=== PATIENT | male | born 1950 | race Caucasian/White ===

== ENCOUNTER 2017-07-05 08:13 | Inpatient (IN) | payer OTHER ==
[2017-06-12 09:07] VITALS: BMI 38.0
--- NOTE | 2017-06-12 09:39 | PAT Medication Instructions ---
Service Date Jun 12, 2017. Current Home Medication List Glucosamine-Chondroitin (Glucosamine/Chondroitin), 1 CAP PO BID Multivitamin (Multivitamin), 1 TAB PO BID Primidone (Mysoline), 100 MG PO BID Ranitidine (Zantac), 300 MG PO BID Tamsulosin HCl (Tamsulosin HCl), 1 CAP PO QAM Testosterone Cypionate (Testosterone Cypionate), 1 DOSE INJ Q4WK Medication Instructions For Your Scheduled Surgery Testosterone Cypionate (Testosterone Cypionate), 1 DOSE INJ Q4WK (continue as directed) - Hold the following medications 2 weeks prior to surgery: Glucosamine-Chondroitin (Glucosamine/Chondroitin), 1 CAP PO BID - Hold the following medications the morning of surgery: Multivitamin (Multivitamin), 1 TAB PO BID Ranitidine (Zantac), 300 MG PO BID Tamsulosin HCl (Tamsulosin HCl), 1 CAP PO QAM - Take the following medications the morning of surgery with a sip of water: Primidone (Mysoline), 100 MG PO BID - Take the following medications as scheduled the night before surgery: Ranitidine (Zantac), 300 MG PO BID Primidone (Mysoline), 100 MG PO BID If you have any questions please call us at [phone] or [phone] or [phone]
--- NOTE | 2017-06-12 10:20 | DIAGNOSTIC IMAGING REPORT ---
CHEST PREADMISSION(PA/LAT) CLINICAL HISTORY: PAT preoperative evaluation COMPARISON STUDY: 01/17/2011 FINDINGS: The bones soft tissues and hemidiaphragms are normal. The cardiomediastinal silhouette is normal. The lungs are clear. The pulmonary vasculature is normal. IMPRESSION: Negative chest. The above report was generated using voice recognition software. It may contain grammatical, syntax or spelling errors. Electronically signed by: Jeremie Bruce M.D. 06/12/2017 10:18 AM Dictated Date/Time: 06/12/2017 10:18 AM
[2017-06-12 10:39] LABS: BASO % 0.5 %; BASO ABS # 0.03 K/uL (0-0.2); COMPLETE YES; EOS % 1.3 %; HEMATOCRIT 48.6 % (42-52); IG% 0.2 %; LYMPH % 33.6 %; LYMPH ABS # 2.01 K/uL (1.2-3.4); MEAN CORPUSCULAR HEMOGLOBIN 33.6 pg (25-34); MEAN PLATELET VOLUME 11.4 fL (7.4-10.4); MONO % 7.9 %; NEUT % 56.5 %; PLATELET COUNT 114 K/uL (130-400); RED BLOOD COUNT 4.91 M/uL (4.7-6.1); WHITE BLOOD COUNT 5.98 K/uL (4.8-10.8)
[2017-06-12 10:47] LABS: INR 0.9 (0.9-1.1); PARTIAL THROMBOPLASTIN RATIO 1.1
[2017-06-12 10:50] LABS: BUN/CREATININE RATIO 18.1 (10-20); CALCIUM 9.3 mg/dl (8.5-10.1); CREATININE 1.1 mg/dl (0.60-1.40); POTASSIUM 4.5 mmol/L (3.5-5.1)
--- NOTE | 2017-06-30 14:13 | HISTORY & PHYSICAL EXAMINATION ---
DATE OF ADMISSION: 07/05/2017 CHIEF COMPLAINT: Left knee pain and discomfort. HISTORY OF PRESENT ILLNESS: This is a 66-year-old gentleman who presents for surgical treatment of his left knee. He has got a long history of left knee pain and discomfort and had 3 previous surgeries on his left knee. These were done by Dr. Mehta and some were done in [place]. Over the past several years, he has developed increased pain and discomfort in his knee. He has had recent injections, which helped him for just a couple weeks at best. His pain has become more debilitating. It is a global pain, increased with weightbearing. He would like to have his knee fixed. PAST MEDICAL HISTORY: Significant for, 1. Back pain. 2. Gastroesophageal reflux disease. 3. History of smoking. 4. Obesity with a BMI 39. PAST SURGICAL HISTORY: Include, 1. Left knee surgery x3. 2. Right knee surgery x1. 3. Cholecystectomy. ALLERGIES: PENICILLIN, WHICH APPARENTLY CAUSES ANAPHYLAXIS. CURRENT MEDICINES: Include, 1. Primidone 250 mg twice a day for shakes. 2. Ranitidine twice a day. 3. Tamsulosin for prostate once a day. 4. Testosterone 50 mg every 4 weeks for Klinefelter syndrome. SOCIAL HISTORY: A 67-year-old male. He is . Half a pack of cigarettes a day. FAMILY HISTORY: Noncontributory. REVIEW OF SYSTEMS: Negative for diabetes, neurologic problems, vascular problems, or bleeding disorders. Denies any chest pain. No shortness of breath. No history of DVT or PE. PHYSICAL EXAMINATION: GENERAL: Physical examination reveals a healthy, pleasant, middle-aged male. He looks to be in pretty good health. HEENT: Benign. NECK: Supple. No lymphadenopathy. LUNGS: Clear to auscultation. HEART: Regular rate and rhythm. ABDOMEN: Soft, nontender, and nondistended. EXTREMITIES: Grossly neurovascularly intact except as follows. Examination of left knee reveals that the patient ambulates independently. He has got a well-healed incision on the front medial side of his knee. He has got slight varus deformity. He has got small to moderate sized knee effusion. He is tender over the medial joint line. Range of motion is 5-125. No clinical instability. X-RAYS: X-rays of the left knee were reviewed. It shows advanced left knee medial compartment DJD. He has got complete loss of his medial joint space. He got osteophytes of the mediofemoral condyle and medial tibial plateau. ASSESSMENT: A 67-year-old male with a history of 3 previous knee surgeries with advanced degenerative joint disease. He has failed conservative treatment and would like to have his left knee replaced. PLAN: We are going to take him to the operating room and do a left total knee replacement. The risks and benefits of this procedure were explained to the patient, including but not limited to DVT, PE, , infection, neurological injury, vascular injury, bleeding problem, pain, limited range of motion, stiffness, failure to relieve his symptoms, incomplete relief of symptoms, need for further surgery in the future, fracture, leg length inequality, nerve palsy, dislocation, persistent pain, etc. The patient understands and desires to proceed. Informed consent was obtained. We will likely give him vancomycin due to his ACUTE PENICILLIN ALLERGY. He does have a smoking history and will likely need to use a nicotine patch. He is hoping to just go to outpatient therapy at [facility] postoperatively once discharged from the hospital. ABIMBOLA
[2017-07-05] VITALS (10 sets, daily range): BP systolic 111–178; BP diastolic 79–125; PULSE 60–83; TEMP 36.2–36.8; O2SAT 94–100; Ht 185.4 cm; Wt 131.7 kg
[~2017-07-05] VITALS: Ht 185.4 cm; Wt 131.7 kg
[~2017-07-05 08:13] MED LIST: ACETAMINOPHEN 500 MG TAB PO SCH; BUPIVACAINE LIPOSOME 266 MG, BUPIVACAINE/EPINEPHRINE INJ 50 ML, SODIUM CHLORIDE 0.9% PF... INFIL SCH; CLONIDINE HCL 0.1 MG/24 HR TRANSDERM SYS TD SCH; FAMOTIDINE 20 MG TAB PO SCH; FLM4 PO; GABAPENTIN 300 MG CAP PO SCH; GLUC250C PO; LACTATED RINGER'S 1000ML 1,000 ML IV SCH; LACTATED RINGER'S 1000ML 500 ML IV ONE; LACTATED RINGER'S 1000ML IV SCH; METOCLOPRAMIDE HCL 10 MG TAB PO SCH; MULT-506 PO; PRIM50TA29 PO; TEST1INJ2 INJ; TRANEXAMIC ACID INJ 1,000 MG in SODIUM CHLORIDE 0.9% 100ML 100 ML IV SCH; VANCOMYCIN INJ 2,000 MG in SODIUM CHLORIDE 0.9% 500ML 500 ML IV SCH; ZNTT/150 PO
[2017-07-05] MEDS ORDERED: BUPIVACAINE 0.25% 30 ML VIAL ONE (08:18)
[2017-07-05] MEDS ORDERED: BUPIVACAINE 0.5 % 5 MG/1 ML PF 10ML VIAL ONE (08:18)
--- NOTE | 2017-07-05 08:47 | History & Physical Bridge Note ---
H&P Re-Evaluation Bridge Note: I have examined the patient, reviewed the History & Physical and in the interval since the performance of the History & Physical I have noted the following changes of clinical significance: No changes noted
[2017-07-05] MEDS ORDERED: MIDAZOLAM HCL 1 MG/ML 2ML VIAL ONE (10:22)
[2017-07-05] MEDS ORDERED: FENTANYL CITRATE INJ 50 MCG/1 ML 2 ML VIAL ONE ×2 (10:22→12:57)
[2017-07-05] MEDS ORDERED: BUPIVACAINE/EPINEPHRINE 0.25% 1:200,000 30 ML VIAL ONE (11:29)
[2017-07-05] MEDS ORDERED: SODIUM CHLORIDE 0.9% PF 50 ML VIAL ONE (11:29)
[2017-07-05] MEDS ORDERED: VANCOMYCIN HCL 1000MG/20ML VIAL ONE (11:30)
[2017-07-05] MEDS ORDERED: BUPIVACAINE LIPOSOME 1/3% 266 MG/20 ML VIAL INFIL ONE (11:30)
[2017-07-05] MEDS ORDERED: BACITRACIN 50000 UNIT VIAL ONE (11:30)
[2017-07-05] MEDS ORDERED: EpHEDrine SULFATE INJ 50 MG/ML AMP IV PRN (11:45)
[2017-07-05] MEDS ORDERED: PHENYLEPHRINE 100MCG/ML 5ML SYR IV PRN (11:45)
[2017-07-05] MEDS ORDERED: KETOROLAC TROMETHAMINE 15 MG/ML VIAL IV. PRN (11:45)
[2017-07-05] MEDS ORDERED: ATROPINE SULFATE 0.1 MG/ML 5ML SYR IV PRN (11:45)
[2017-07-05] MEDS ORDERED: ONDANSETRON INJ 2 MG/ML 2 ML VIAL IV PRN ×2 (11:45→13:30)
[2017-07-05] MEDS ORDERED: HYDROmorphone INJ 2 MG/ML SYR/VIAL IV PRN (11:45)
[2017-07-05] MEDS ORDERED: AMINOPHYLLINE 25 MG/ML 20ML VIAL IV ONE (12:40)
[2017-07-05] MEDS ORDERED: LIDOCAINE HCL 2% 2 ML VIAL (20MG/ML) ONE (12:40)
--- NOTE | 2017-07-05 13:28 | [facility] Post Operative Brief Note ---
Immediate Operative Summary Operative Date Jul 05, 2017. Pre-Operative Diagnosis Left knee advanced degenerative joint disease Post-Operative Diagnosis Left knee advanced degenerative joint disease Procedure(s) Performed Left Total Knee Arthroplasty Surgeon Dr. Jd Moss Yarn Weight And Strength Tester Surgeon(s) Silva Holman PA-C Estimated Blood Loss 50 ML Findings Left Knee DJD Fluids (cc crystalloids) 1500 cc Specimens Specimen A. Left knee bone and tissue Drains None Anesthesia Spinal Complication(s) None Disposition Recovery Room / PACU
[2017-07-05] MEDS ORDERED: BISACODYL 10 MG SUPP PR PRN (13:30)
[2017-07-05] MEDS ORDERED: ZOLPIDEM TARTRATE 5 MG TAB PO PRN (13:30)
[2017-07-05] MEDS ORDERED: DiphenhydrAMINE HCL 50 MG/ML VIAL IV PRN (13:30)
[2017-07-05] MEDS ORDERED: METOCLOPRAMIDE HCL INJ 5 MG/ML 2 ML VIAL IV PRN (13:30)
[2017-07-05] MEDS ORDERED: SILVER SULFADIAZINE 1% CR 50 GM JAR EXT PRN (13:30)
[2017-07-05] MEDS ORDERED: MAGNESIUM HYDROXIDE SUSP 30 ML UDC PO PRN (13:30)
[2017-07-05] MEDS ORDERED: ALUMINUM/MAGNESIUM/SIMETH (MAALOX MAX) 30 ML UDC PO PRN (13:30)
[2017-07-05] MEDS ORDERED: TAMSULOSIN HCL 0.4 MG CAP PO PRN (13:30)
--- NOTE | 2017-07-05 14:01 | DIAGNOSTIC IMAGING REPORT ---
LEFT KNEE 1 OR 2 VIEWS ROUTINE HISTORY: 67 years-old Male AP/LATERAL IN PACU LEFT KNEE. Status post arthroplasty COMPARISON: Knee radiographs 02/14/2017 TECHNIQUE: Frontal and lateral views of the left knee FINDINGS: There is been recent left total knee arthroplasty with patellar resurfacing. Alignment is satisfactory without periprosthetic fracture. Skin yareli are noted with drain and expected postsurgical swelling and deep tissue air. IMPRESSION: Status post left knee total joint arthroplasty and patellar resurfacing without complication. The above report was generated using voice recognition software. It may contain grammatical, syntax or spelling errors. Electronically signed by: Tulio Polanco M.D. 07/05/2017 2:00 PM Dictated Date/Time: 07/05/2017 1:59 PM
--- NOTE | 2017-07-05 14:21 | Anesthesiology Progress Note ---
Anesthesia Post Op Note Date & Time Jul 05, 2017 at 14:20 Vital Signs Pain Intensity: 0 Vital Signs Past 12 Hours Date Time Temp Pulse Resp B/P (MAP) Pulse Ox O2 Delivery O2 Flow Rate FiO2 07/05/17 14:15 36.2 48 14 131/80 99 Nasal Cannula 2 07/05/17 14:05 50 15 118/78 99 Nasal Cannula 2 07/05/17 13:55 52 14 119/81 99 Oxymask 10 07/05/17 13:45 64 16 110/76 100 Oxymask 10 07/05/17 13:35 36.2 60 20 129/68 96 Oxymask 10 07/05/17 08:39 36.5 69 18 139/93 95 Room Air Notes Mental Status: alert / awake / arousable, participated in evaluation Pt Amnestic to Procedure: Yes Nausea / Vomiting: adequately controlled Pain: adequately controlled Airway Patency, RR, SpO2: stable & adequate BP & HR: stable & adequate Hydration State: stable & adequate Anesthetic Complications: no major complications apparent
[2017-07-05] MEDS: D5W AND 1/2NSS + 20MEQ KCL 1,000 ML IV SCH ×2 (15:46→21:10)
[2017-07-05] MEDS: CHECK CLONIDINE PATCH PLACEMENT SCH ×2 (16:00→23:20)
[2017-07-05] MEDS ORDERED: PNEUMOCOCCAL ADMINISTRATION CHARGE ONE (16:45)
[2017-07-05] MEDS ORDERED: PNEUMOCOCCAL POLYSACCHARIDES 25 MCG/0.5 ML VIAL/SYR IM. ONE (16:45)
--- NOTE | 2017-07-05 17:52 | PROGRESS NOTE ---
DATE: 07/05/2017 SUBJECTIVE: A 67-year-old gentleman postop from a left knee replacement. He is doing well. He does not have much feeling in his leg yet. No pain. No chest pain or shortness of breath. Not feeling dizzy or lightheaded. OBJECTIVE: VITAL SIGNS: Temperature 36.2. Vital signs stable. GENERAL: Reveals a pleasant, middle-aged male. I had to wake him this afternoon when I went in his rhythm. LUNGS: Clear to auscultation. HEART: Regular rate and rhythm. ABDOMEN: Soft, nontender, nondistended. EXTREMITIES: Grossly neurovascularly intact except as follows: Examination of the left lower extremity reveals the dressing to be clean, dry and intact. Leg is well aligned. He can dorsiflex and plantarflex his toes and just starting to get the motor function back. No significant sensory function yet. He has got brisk refill with good distal pulses. X-RAYS: X-rays of the left knee from recovery room reviewed. It shows a left cemented stabilized total knee arthroplasty. Components looked to be in good position. No signs of problems. ASSESSMENT: A 67-year-old gentleman postop from a left knee replacement, doing well. Spinal has just wearing off. His motor function is intact. Sensory function has not really returned yet. His pain is controlled. PLAN: 1. DVT prophylaxis including thigh-high TEDs, SCDs, and aspirin twice a day. 2. PT/OT. Weightbearing as tolerated. Left total knee protocol. 3. Pain control, doing well with current pain regimen. 4. IV antibiotics x24 hours. 5. Disposition: Plan to discharge to home with some home health once adequately recovered.
[2017-07-05] MEDS: FERROUS GLUCONATE 324 MG TAB PO SCH (18:00)
[2017-07-05] MEDS: KETOROLAC TROMETHAMINE 15 MG/ML VIAL IV. SCH ×2 (18:01→23:23)
[2017-07-05] MEDS: OXYCODONE HCL IR 5 MG TAB (IMMEDIATE RELEASE) PO PRN ×2 (19:02→19:44)
[2017-07-05] MEDS: MoRPHine SULFATE 2 MG/ML CARP IV PRN ×3 (19:45→22:02)
[2017-07-05] MEDS ORDERED: VANCOMYCIN INJ 2,000 MG in SODIUM CHLORIDE 0.9% 500ML 500 ML IV SCH (20:00)
[2017-07-05] MEDS ORDERED: TRANEXAMIC ACID INJ 1,000 MG in SODIUM CHLORIDE 0.9% 100ML 100 ML IV SCH (20:00)
[2017-07-05] MEDS: DOCUSATE SODIUM 100 MG CAP PO SCH (20:30)
[2017-07-05] MEDS: TAPENTADOL ER 50 MG TABCR PO SCH (20:30)
[2017-07-05] MEDS: ASPIRIN 325 MG ECTAB PO SCH (20:30)
[2017-07-05] MEDS: MULTIVITAMIN TAB PO SCH (20:31)
[2017-07-05] MEDS: PRIMIDONE 50 MG TAB PO SCH (20:31)
[2017-07-05] MEDS: RANITIDINE HCL 150 MG TAB PO SCH (20:32)
[2017-07-05] MEDS: SENNA 8.6 MG TAB PO SCH (20:32)
[2017-07-05] MEDS: ACETAMINOPHEN 500 MG TAB PO SCH (20:33)
--- NOTE | 2017-07-05 22:17 | OPERATIVE REPORT ---
DATE OF OPERATION: 07/05/2017 SURGEON: Dr. Jd Moss. ALARM OPERATOR: MARCIA Andrade PREOPERATIVE DIAGNOSIS: Left knee degenerative joint disease. POSTOPERATIVE DIAGNOSIS: Same. PROCEDURE PERFORMED: Left cemented posterior stabilized total knee arthroplasty. COMPLICATIONS: None. ESTIMATED BLOOD LOSS: 50 mL. FLUID REPLACEMENT: 1500 mL crystalloid fluid replacement. ANESTHESIA: Spinal with adductor canal block. DRAINS: None. SPECIMENS: Left knee sent for pathology. TOURNIQUET TIME: 55 minutes at 350 mmHg. OPERATIVE INDICATIONS: The patient is a 67-year-old gentleman who has a history of 3 previous knee surgeries of his left knee. He has had a long history of knee pain. He has been through extensive conservative treatment and this became less successful with time. X-rays show advanced DJD. The patient elected to proceed with operative treatment. OPERATIVE FINDINGS: Operative findings revealed advanced left knee DJD. Grade 4 bone on bone disease in all 3 compartments, most severe in the medial side. Eburnation of medial femoral condyle and medial tibial plateau. Large osteophytes off medial femoral condyle and medial tibial plateau. He had a large ganglion/a Haider cyst in the posteromedial side of his knee. OPERATIVE IMPLANTS: Operative implants consisted of: 1. Biomet Vanguard size 70 left posterior stabilized femoral component. 2. Biomet size 79 tibial tray. 3. A 12 mm posterior stabilized polyethylene insert. 4. A 37 x 10 all poly patella. OPERATIVE PROCEDURE: The patient taken to the operating room, identified and placed on the operating table in supine position. All contact areas were appropriately padded. IV antibiotics were provided by the anesthesia team. A spinal anesthetic and adductor canal block had been provided in the holding area. Drake catheter was placed in sterile fashion. A left thigh tourniquet was then placed and left lower extremity was then prepped and draped in the usual sterile fashion. The left leg was elevated and exsanguinated with an Esmarch and tourniquet was placed at 350 mmHg. An anterior approach to the left knee was then performed through a longitudinal incision centered over the patella. Sharp dissection was carried out through the subcutaneous tissues down to the level of the extensor mechanism. A medial parapatellar arthrotomy incision was made. Some subperiosteal dissection was carried out medially. Upon doing this, we entered the large ganglion fluid-filled cyst in the posteromedial side of his tibia. This was evacuated. The fat pad was resected. The patellofemoral ligament was released. The patella was everted and knee was flexed. The osteophytes were taken off the distal femur. The ACL and PCL were then released from the distal femur and the tibia subluxated anteriorly. The external tibial alignment jig was then placed in the anterior face of the tibia and adjusted 16 mm medially. Proximal tibial cut was made to remove about a millimeter of bone from the most deficient aspect of the medial tibial plateau. Some osteophytes were taken off medial and posteromedially. Tibia was sized to a size 79. Attention was then drawn to the femur. The distal femur was entered with a sharp drill bit. Intramedullary canal was suctioned. A left 6-degree valgus cutting guide was placed. Distal femoral cutting block was pinned in place. Distal femoral cut was made to take an additional 3 mm of bone off the distal femur. The femur was then sized to a size 70. This fit exactly at 70. The AP cutting block was pinned parallel to the epicondylar axis, which was 5 degrees of external rotation with the anterior cut, anterior chamfer, posterior cut, posterior chamfer cuts were made. Box cutting guide was placed and adjusted slightly lateral and the box cut was made. The knee was flexed. The remnants of the medial and lateral meniscus were excised. The osteophytes were taken off the posterior aspect of the femur. Trial femoral component was placed. Tibial tray was pinned in maximum external rotation and drill and stem punch were used to create defect in proximal tibia for the tibial tray. The knee was then trialed and a 12 mm insert fit most appropriately. Attention was then drawn to the patella. The patella was cleaned of all soft tissues. Patella thickness measured 25 mm in thickness and was cut down to 15, it was sized to a size 37 patella. Lug holes were drilled for a 37 patella. Lateral osteophyte was removed. Patella button was placed. The knee was taken through range of motion and the patella tracked nicely with no thumbs test. Attention was then drawn toward placement of permanent components. All trial components were removed. Bone plug was placed in the distal femur to limit blood loss. A double batch of Palacos G cement was mixed. A left size 70 posterior stabilized femoral component, size 79 tibial tray, a 12 mm posterior stabilized polyethylene insert, and a 37 x 10 all poly patella were then cemented in place. Knee was brought out into full extension until cement hardened. A final cement check was then performed. Pericapsular tissues were injected with a total of 100 mL of a combination of 20 mL of Exparel, 30 mL of normal saline, 50 mL of 0.25% Marcaine with epinephrine. The patient did receive 1 gram of tranexamic acid. The tourniquet was then let down for final tourniquet time of 59 minutes. Hemostasis was assured with use of electrocautery. The extensor mechanism was then closed with a combination of #1 PDS suture and #1 Vicryl suture in a [id number] fashion. Extensor mechanism was checked and found to be intact. The subcutaneous tissues were then closed with 2-0 Dexon suture in buried interrupted fashion. Skin was closed skin yareli. Leg was then cleaned and dried and a sterile dressing of Xeroform, 4 x 4, sterile cast padding and an Aaron bandage were applied. The patient was then transferred to the recovery room in stable condition. The patient tolerated the procedure well with no complications. All needle and sponge counts were correct at the end of the operation. I attest to the content of the Intraoperative Record and any orders documented therein. Any exceptions are noted below. BRINAD
[2017-07-06 03:35] VITALS: BP 103/67; PULSE 68; TEMP 36.7; O2SAT 93
[2017-07-06] MEDS: KETOROLAC TROMETHAMINE 15 MG/ML VIAL IV. SCH ×4 (05:11→23:11)
[2017-07-06] MEDS: ACETAMINOPHEN 500 MG TAB PO SCH ×3 (05:11→20:49)
[2017-07-06] MEDS: D5W AND 1/2NSS + 20MEQ KCL 1,000 ML IV SCH ×2 (05:14→11:44)
[2017-07-06] MEDS: OXYCODONE HCL IR 5 MG TAB (IMMEDIATE RELEASE) PO PRN ×2 (05:17→09:52)
[2017-07-06 06:20] LABS: HEMATOCRIT 41.4 % (42-52); MEAN CELL VOLUME 100.5 fL (80-100); MEAN CORPUSCULAR HGB CONC 32.9 g/dl (32-36); MEAN PLATELET VOLUME 11.3 fL (7.4-10.4); PLATELET COUNT 123 K/uL (130-400); RED BLOOD COUNT 4.12 M/uL (4.7-6.1); WHITE BLOOD COUNT 6.35 K/uL (4.8-10.8)
[2017-07-06 07:41] VITALS: BP 92/61; PULSE 66; TEMP 36.7; O2SAT 96
[2017-07-06 07:52] LABS: BUN/CREATININE RATIO 13.4 (10-20); CALCIUM 8.1 mg/dl (8.5-10.1); CREATININE 1.1 mg/dl (0.60-1.40); POTASSIUM 4.5 mmol/L (3.5-5.1)
[2017-07-06] MEDS: CHECK CLONIDINE PATCH PLACEMENT SCH ×3 (08:19→23:08)
[2017-07-06] MEDS: MoRPHine SULFATE 2 MG/ML CARP IV PRN (08:23)
[2017-07-06] MEDS: ASPIRIN 325 MG ECTAB PO SCH ×2 (08:24→20:48)
[2017-07-06] MEDS: TAPENTADOL ER 50 MG TABCR PO SCH ×2 (08:24→20:49)
[2017-07-06] MEDS: PRIMIDONE 50 MG TAB PO SCH ×2 (08:25→20:49)
[2017-07-06] MEDS: MULTIVITAMIN TAB PO SCH ×2 (08:25→20:48)
[2017-07-06] MEDS: DOCUSATE SODIUM 100 MG CAP PO SCH ×2 (08:25→20:47)
[2017-07-06] MEDS: TAMSULOSIN HCL 0.4 MG CAP PO SCH (08:25)
[2017-07-06] MEDS: FERROUS GLUCONATE 324 MG TAB PO SCH ×3 (08:26→18:06)
[2017-07-06] MEDS: PANTOprazole SOD 40 MG TAB PO SCH (08:26)
[2017-07-06] MEDS: RANITIDINE HCL 150 MG TAB PO SCH ×2 (08:26→20:48)
--- NOTE | 2017-07-06 08:57 | PROGRESS NOTE ---
DATE: 07/06/2017 SUBJECTIVE: A 67-year-old gentleman postop day 1 from left knee replacement. He is doing pretty well. Not much pain. No chest pain or shortness of breath. Not feeling dizzy or lightheaded. OBJECTIVE: VITAL SIGNS: Temperature 36.7. Vital signs stable. PHYSICAL EXAMINATION: Examination of the left lower extremity reveals the leg to be well aligned. Dressing is clean, dry and intact. No drainage. He can dorsiflex and plantarflex his foot appropriately. He is neurologically intact. LABORATORY DATA: Hemoglobin 13.6, hematocrit 41.4. Electrolytes are pending. ASSESSMENT: A 67-year-old gentleman postop day 1 from left knee replacement, doing pretty well. Pain seems to be controlled. He is neurologically intact. PLAN: 1. DVT prophylaxis including thigh-high TEDs, SCDs, and aspirin twice a day. 2. PT/OT. Weightbearing as tolerated. Left total knee protocol. 3. Pain control, doing well with current pain regimen. 4. Disposition. He is planning to be discharged to home with some home health once medically stable and recovered.
[2017-07-06] MEDS ORDERED: MULTIVITAMIN TAB PO SCH (09:00)
[2017-07-06 15:16] VITALS: BP 96/61; PULSE 88; TEMP 37.1; O2SAT 92
[2017-07-06 16:30] VITALS: O2SAT 92
[2017-07-06] MEDS ORDERED: ASPEC325 PO (20:06)
[2017-07-06] MEDS ORDERED: ACET-24 PO (20:06)
[2017-07-06] MEDS ORDERED: RXC5 PO (20:06)
--- NOTE | 2017-07-06 20:10 | Discharge Instructions ---
Discharge Instructions Date of Service Jul 06, 2017. Admission Reason for Admission: Left Knee Degenerative Joint Disease Discharge Discharge Diagnosis / Problem: Left Knee Replacement Discharge Goals Goal(s): Decrease discomfort, Improve function, Increase independence, Improve disease control, Therapeutic intervention Activity Recommendations Activity Limitations: per Instructions/Follow-up section Weightbearing Status: Left weightbearing . Instructions / Follow-Up Instructions / Follow-Up ACTIVITY RECOMMENDATIONS: Physical Therapy: * You will go to physical therapy three times each week for four to six weeks after your surgery in order to regain your knee range of motion and to retrain your knee to work properly. * It is just as important to make sure you are getting your knee perfectly straight as it is to regain your knee bend. * Taking a pain pill an hour before therapy can help you have a more productive and comfortable therapy session. Home Exercise: * You were shown a series of exercises (heel props, heel slides, etc.) in the hospital. Do these exercises three to four times each day including the exercises you were shown in physical therapy. Walking: * Get up and walk several times each day. For the first four weeks, try not to stand or walk for more than one hour at a time. If you do stand or walk for more than one hour, you will not hurt anything, but your knee and leg will likely swell. * As you feel comfortable, you may change from the walker or crutches to a cane and then to independent walking. MEDICATIONS: New Medicine: * You will likely be taking one or more of these medications: 1. MS Contin - A long-acting pain medication. Take 1 tablet twice a day for the first ten days to decrease your baseline level of pain. 2. Oxycodone - A quick and shorter-acting pain medication. Take one to two tablets every four to six hours to lessen your pain. 3. Aspirin - Thins your blood to lessen the chance of forming a blood clot. * The most common side effects of pain medicine and iron are nausea and constipation. If nausea or constipation is too much of a problem or if you have any questions about your new medicines or doses, call [facility] at . We will try to help you manage these issues. VERY IMPORTANT TO READ AND REVIEW" Pain: * The immediate post-operative period after knee replacement surgery is often quite painful. * You are given a prescription for pain medicine. You should take it, as directed, when you need it, especially before physical therapy and before going to bed. Pain that interferes with sleep is very common and can last several months. * You will likely need pain medicine for the first four to six weeks. It will not stop all of the pain. The pain will lessen and as you feel better, you may change to milder pain medicine such as Tylenol. * The most common side effects of pain medicine are nausea and constipation, so don't take more than you need. SPECIAL CARE INSTRUCTIONS: TEDs/Elastic Stockings: * The white elastic stockings help limit swelling and prevent blood clots from forming in your legs. The more you wear them, the more they work. * Wear them for six weeks after knee replacement surgery and four weeks after partial knee replacement. Prevention of Infection: * Take antibiotics one hour before any dental cleaning, dental work, urological procedure, gastrointestinal procedure or any invasive surgery in order to prevent your new joint from getting infected. * You may get the antibiotics from the doctor performing the procedure or you may call our office at before and we will call in a prescription to the pharmacy of your choice. Things to Watch For: * Drainage from the incision site that occurs more than one week after your surgery. * Severely increased knee/leg pain or swelling. * Increased redness at the incision site. * Fever above 102 degrees Fahrenheit. * Unusual chest pain or shortness of breath. * Unusual pain or burning with urination. Call [facility] at with any of the above problems or if you have any questions about your medicines or recovery. FOLLOW UP VISIT: Make an appointment to see your doctor for approximately two weeks after surgery for a progress check and staple removal by calling the office at . Current Hospital Diet Patient's current hospital diet: Regular Diet Discharge Diet Recommended Diet: Regular Diet Procedures Procedures Performed: Left Total Knee Arthroplasty Pending Studies Studies pending at discharge: no Medical Emergencies . Who to Call and When: Medical Emergencies: If at any time you feel your situation is an emergency, please call [phone] immediately. . Non-Emergent Contact Non-Emergency issues call your: Surgeon . "Provider Documentation" section prepared by Jd Moss. . VTE Core Measure Inpt VTE Proph given/why not?: Other Anticoagulation, T.E.D. Stockings, SCD's
[2017-07-06] MEDS ORDERED: MORP-157 PO (20:12)
[2017-07-06] MEDS: SENNA 8.6 MG TAB PO SCH (21:23)
[2017-07-06 21:24] VITALS: BP 142/80; PULSE 67
[2017-07-06 22:55] VITALS: BP 94/58; PULSE 90; TEMP 37.4; O2SAT 92
[2017-07-07] MEDS: OXYCODONE HCL IR 5 MG TAB (IMMEDIATE RELEASE) PO PRN ×4 (01:31→14:18)
[2017-07-07 03:09] VITALS: BP 101/65; PULSE 80; TEMP 36.8; O2SAT 93
[2017-07-07] MEDS: MoRPHine SULFATE 2 MG/ML CARP IV PRN (03:26)
[2017-07-07] MEDS: ACETAMINOPHEN 500 MG TAB PO SCH ×2 (05:22→14:19)
[2017-07-07] MEDS: KETOROLAC TROMETHAMINE 15 MG/ML VIAL IV. SCH ×2 (05:23→12:26)
[2017-07-07 06:40] VITALS: BP 94/61; PULSE 74; TEMP 36.7; O2SAT 91
[2017-07-07] MEDS: PANTOprazole SOD 40 MG TAB PO SCH (07:33)
[2017-07-07] MEDS: FERROUS GLUCONATE 324 MG TAB PO SCH ×2 (07:33→12:26)
[2017-07-07] MEDS: TAMSULOSIN HCL 0.4 MG CAP PO SCH (07:33)
[2017-07-07] MEDS: TAPENTADOL ER 50 MG TABCR PO SCH (07:35)
[2017-07-07] MEDS: CHECK CLONIDINE PATCH PLACEMENT SCH (07:58)
[2017-07-07] MEDS: RANITIDINE HCL 150 MG TAB PO SCH (07:59)
[2017-07-07] MEDS: DOCUSATE SODIUM 100 MG CAP PO SCH (07:59)
[2017-07-07] MEDS: MULTIVITAMIN TAB PO SCH (07:59)
[2017-07-07] MEDS: ASPIRIN 325 MG ECTAB PO SCH (07:59)
[2017-07-07] MEDS: PRIMIDONE 50 MG TAB PO SCH (07:59)
--- NOTE | 2017-07-07 08:14 | PROGRESS NOTE ---
DATE: 07/07/2017 SUBJECTIVE: A 67-year-old gentleman postop day #2 from the left knee replacement. He is doing pretty well. Therapy has gone well. Pain is controlled. Denies any chest pain or shortness of breath. OBJECTIVE: VITAL SIGNS: Temperature 36.7. Vital signs stable. PHYSICAL EXAMINATION: GENERAL: Reveals a healthy pleasant, middle-aged male. He is sitting up in bed, looks pretty comfortable. EXTREMITIES: Examination of the left leg reveals dressing to be clean, dry and intact. No drainage. Calf is soft and supple. He is neurologically intact. ASSESSMENT: A 67-year-old gentleman postop day #2 from a left knee replacement, doing well. Pain is controlled. PLAN: 1. DVT prophylaxis including thigh-high TEDs, SCDs, and aspirin twice a day. 2. PT/OT as tolerated. Left total knee protocol. 3. Pain control. Doing well with current pain regimen. 4. Disposition: Plan to discharge to home after therapy today.
[2017-07-07 09:12] VITALS: BP 104/67; PULSE 80; O2SAT 93
[2017-07-07 14:05] VITALS: BP 104/67; PULSE 80; TEMP 36.7; O2SAT 93
--- NOTE | 2017-07-09 14:17 | DISCHARGE SUMMARY ---
ADMITTING PHYSICIAN AND SURGEON: Dr. Moss. ADMITTING DIAGNOSIS: Left knee degenerative joint disease. SURGERY PERFORMED: Left total knee arthroplasty. SECONDARY DIAGNOSES: Back pain, gastroesophageal reflux disease, history of smoking and obesity. CONSULTS: None obtained. HISTORY AND PHYSICAL EXAMINATION: Well documented in patient's chart. HOSPITAL COURSE: The patient was admitted on 07/05/2017 underwent total knee arthroplasty, tolerated the procedure well. There were no complications. He was transferred to PACU postoperatively and later to the orthopedic floor for further care. He was given vancomycin for antibiotic prophylaxis, OLIVERIO stockings, SCDs and aspirin for DVT prophylaxis. Hemoglobin, hematocrit and vital signs were monitored during his hospital stay and remained stable. He did not require any blood transfusions. There were no complications. By postoperative day 2, he was tolerating a regular diet, pain was controlled with oral pain medicine. He was participating in physical therapy and had no signs or symptoms of deep vein thrombosis. On postop day 2, he was discharged home and set up with home health services, given printed discharge instructions including prescriptions for extra strength Tylenol, aspirin 325 mg b.i.d., MS Contin and oxycodone. Continue home his home medicines. Continue physical therapy, weightbearing as tolerated, OLIVERIO stockings. Follow up in 10-12 days or sooner if there are any problems or concerns.
== END 2017-07-07 14:43 | disposition home health service (06) | DRG 470 ==
LOC: C.ACU 08:13 → C.3E 08:53 → ENRESERV 14:07
PROVIDERS: ADMIT Orthopaedic Surgery Sports Medicine; ATTEND Orthopaedic Surgery Sports Medicine
PROC: 0SRD0J9 Replacement of Left Knee Joint with Synthetic Substitute, Cemented, Open Approach (ICD-10-PCS; principal; 2017-07-05 10:40)
DX: M17.12 Unilateral primary osteoarthritis, left knee (principal); K21.9 Gastro-esophageal reflux disease without esophagitis; E66.9 Obesity, unspecified; Z68.39 Body mass index [BMI] 39.0-39.9, adult; F17.210 Nicotine dependence, cigarettes, uncomplicated; Q98.4 Klinefelter syndrome, unspecified